=== PATIENT | female | born 1985 | race Two or more races ===

== ENCOUNTER → 2016-04-09 | Outpatient (CLI) | payer BC ==
--- NOTE | 2016-04-09 11:59 | REP ---
PA and lateral chest: There are no comparisons. The lung correa are clear. The cardiac size is normal The stacey, mediastinum, and bony thorax are unremarkable. Impression: Negative PA and lateral chest. Signed by Ace Queen MD 04/09/2016 11:51 A
== END ==
LOC: M LRY 11:21
PROVIDERS: ATTEND Physician Assistant
DX: R05 Cough (principal)